=== PATIENT | female | born 2000 | race Caucasian/White ===

== ENCOUNTER 2021-03-06 10:33 | Emergency (ER) | payer OTHER, SELFPAY ==
[2021-03-06 10:43] VITALS: BP 142/85; PULSE 94; RESP 16; TEMP 36.9; O2SAT 100
[2021-03-06 10:45] VITALS: BP 142/85; PULSE 94; RESP 16; TEMP 36.9; O2SAT 100
--- NOTE | 2021-03-06 10:55 | ED.FEMALEGU ---
HPI - Female Genitourinary General Chief complaint: Urogenital-Female Stated complaint: POS UTI Source: patient and RN notes reviewed Limitations: no limitations History of Present Illness HPI Narrative: The patient, previously mostly healthy, presents with a weeklong history of urinary frequency, urgency and dysuria. No fever, low back pain, vomiting/diarrhea, abdominal pain. She saw OB in the last month and declines STD testing Related Data Home Medications Medication Instructions Recorded Confirmed drospirenone-estetrol 1 tablet PO DAILY 03/06/21 03/06/21 Allergies Allergy/AdvReac Type Severity Reaction Status Date / Time No Known Allergies Allergy Verified 03/06/21 10:43 Review of Systems Review of Systems: The patient has been informed that they may have pre-hypertension or Hypertension based on a BP reading in the department. I recommend that the patient call the primary care provider listed on their discharge instructions or a physician of their choice this week to arrange follow up for further evaluation of possible pre-hypertension or Hypertension General/Constitutional: No weight loss,fever Eyes: N0: Redness,discharge Ears/Nose/Throat: No: Epistaxis,ear discharge Respiratory: Denies: Hemoptysis Gastrointestinal: No Vomiting, Bleeding-rectal Skin: No Lumps, eruption Neurologic: No Focal Weakness,Sz Hematologic: Denies: Petechiae/Purpura Psychiatric: No: Suicida ideationl All Other Systems: Reviewed and Negative PMFSH Comments At time of signature, agree with nursing past medical, surgical, social and family history. There is no relevant family history pertinent to the presenting complaint Exam Narrative: General Appearance: Well appearing, Conjunctiva clear Mouth/Throat: Normal appearing, Normal lips, Supple Respiratory: Airway patent, No respiratory distress Cardiovascular: RRR Abdomen: Soft, Non-tender, Musculoskeletal: Full ROM Skin: Warm, Dry Neurological: A&O x3, , Normal affect Course Vital Signs Vital signs: Vital Signs Temperature 98.5 F 03/06/21 10:43 Pulse Rate 94 03/06/21 10:43 Respiratory Rate 16 03/06/21 10:43 Blood Pressure 142/85 H 03/06/21 10:43 Pulse Oximetry 100 03/06/21 10:43 Temperature 98.5 F 03/06/21 10:45 Pulse Rate 94 03/06/21 10:45 Respiratory Rate 16 03/06/21 10:45 Blood Pressure 142/85 H 03/06/21 10:45 Pulse Oximetry 100 03/06/21 10:45 MDM - Female Genitourinary Lab Data Labs: Urine Glucose Negative Reference Range: Negative Urine Bilirubin Negative Reference Range: Negative Urine Ketone Negative Reference Range: Negative Urine Specific Catherine 1.015 Reference Range:1.001-1.035 Urine Blood 2+ Reference Range: Negative * * Urine pH 7.0 Reference Range: 5.0-9.0 Urine Protein Negative Reference Range: Negative Urine Urobilinogen 0.2 Reference Range: 0.2-1.0 Urine Nitrate Positive Reference Range: Negative Urine Leukocyte 3+ Reference Range: Negative Urine Color Light/Pale,Yellow Reference Range: Yellow Urine Characteristics Cloudy Urine Characteristic
== END 2021-03-06 11:13 | disposition home or self-care (01) ==
PROVIDERS: Emergency Provider Emergency Medicine
DX: N30.00 Acute cystitis without hematuria (principal)
CPT/HCPCS: 81003; 87077; 87086; 87088; 87186; 99213; G0463

== ENCOUNTER 2022-06-24 08:28 | Emergency (ER) | payer OTHER, SELFPAY ==
--- NOTE | 2022-06-24 08:41 | ED.GENADULT ---
HPI - General Adult General Chief complaint: Upper Respiratory Infection Stated complaint: congestion Time Seen by Provider: 06/24/22 08:41 Source: patient Mode of arrival: ambulatory Limitations: no limitations History of Present Illness HPI narrative: 22-year-old female patient presents to the [facility] with complaints of sinus in cold-like symptoms for the past2 weeks. Patient states she has had a sore throat, or murmur she feels like her lymph nodes is swollen, congestion, sneezing, runny nose and states that her left eye has been draining starting this morning. Patient also complaining of discomfort to bilateral ears. Denies any chest pain or shortness of breath. Denies any fevers, body aches or chills. Denies any abdominal pain, nausea, vomiting or diarrhea. Patient denies being vaccinated for influenza or COVID. Patient states she has been taking [id number] Advil Sinus and Benadryl for her symptoms. Related Data Home Medications Medication Instructions Recorded Confirmed drospirenone 3 mg-estetrol 14.2 mg 1 tablet PO DAILY 03/06/21 06/24/22 (28) tablet Allergies Allergy/AdvReac Type Severity Reaction Status Date / Time No Known Allergies Allergy Verified 06/24/22 08:45 Review of Systems Review of Systems: CONSTITUTIONAL: Denies fever, chills, or sweats. EYES: Denies visual changes, redness, positive clear discharge to left eye. ENT: Positive rhinorrhea, congestion, sore throat, and otalgia. CARDIOVASCULAR: Denies chest pain, palpitations, or edema. RESPIRATORY: positive mild cough denies dyspnea. GASTROINTESTINAL: Denies abdominal pain, nausea, vomiting, or diarrhea. GENITOURINARY: Denies dysuria or hematuria. SKIN: Denies rash or itching. MUSCULOSKELETAL: Denies back pain, joint pain, or myalgia. NEUROLOGIC: positive headache, numbness, or weakness. PSYCHIATRIC: Denies anxiety or depression. Exam Narrative: GENERAL: Well-appearing, well-nourished, and in no acute distress. HEAD: Normocephalic, atraumatic. EYES: PERRLA and EOMI. slight clear discharge noted to left eye no colored or purulent drainage noted. No erythema or redness noted to the sclera ENT: Nares with erythema edema noted bilaterally, no rhinorrhea or epistaxis. Mucous membranes moist. posterior pharynx with 2+ tonsil enlargement, no exudates or lesions present. There is postnasal drip noted. Bilateral TMs are clear no erythema 4 by the canal. NECK: Supple. No lymphadenopathy CHEST: Clear to auscultation. No respiratory distress. HEART: Regular rate and rhythm. No murmur heard. Normal peripheral pulses. ABDOMEN: Soft, nontender, nondistended, normal active bowel sounds. EXTREMITIES: Normal range of motion. No edema. SKIN: Warm, dry, no rash. NEURO: No focal deficits. Alert and oriented x3. Course Course Level of Care: Express Care Visit Reevaluation(s) Reevaluation #1: Re-evaluated patient. Discussed with her that she is negative for strep today. Discussed with patient that we will send it off to lab for a culture and if the culture does come back positive we will place her on antibiotics. Discussed with patient we will treat her today as a viral sinusitis and discharge her home with oral steroid, antihistamine eyedrop, daily antihistamine and nasal steroid to help with inflammation and congestion. Patient verbalized understanding denies any other questions or concerns at this time. Date: 06/24/22 Time: 09:22 Vital Signs Vital signs: Vital Signs Temperature 36.8 C 06/24/22 08:44 Pulse Rate 75 06/24/22 08:44 Respiratory Rate 18 06/24/22 08:44 Blood Pressure 119/68 06/24/22 08:44 Pulse Oximetry 100 06/24/22 08:44 Oxygen Delivery Room Air 06/24/22 08:44 Temperature 36.8 C 06/24/22 08:44 Pulse Rate 75 06/24/22 08:44 Respiratory Rate 18 06/24/22 08:44 Blood Pressure 119/68 06/24/22 08:44 Pulse Oximetry 100 06/24/22 08:44 Oxygen Delivery Room Air 06/24/22 08:44 Vital
[2022-06-24 08:44] VITALS: BP 119/68; PULSE 75; RESP 18; TEMP 36.8; O2SAT 100
== END 2022-06-24 09:20 | disposition home or self-care (01) ==
PROVIDERS: Emergency Provider Nurse Practitioner Family
DX: J32.9 Chronic sinusitis, unspecified (principal); J06.9 Acute upper respiratory infection, unspecified; Z28.310 Unvaccinated for COVID-19; Z28.39 Other underimmunization status
CPT/HCPCS: 87081; 87880; 99213; G0463